=== PATIENT | male | born 1955 | race Caucasian/White ===

== ENCOUNTER 2017-12-10 08:37 | Emergency (ER) | payer MEDICARE, MEDICAID ==
[2017-12-10 09:31] LABS: ABSOLUTE BASOPHILS # (AUTO) 0.1 10^3/uL (0.0-0.2); ABSOLUTE EOSINOPHILS # (AUTO) 0.2 10^3/uL (0.0-0.6); ABSOLUTE LYMPHOCYTES (AUTO) 1.5 10^3/uL (0.5-4.7); ABSOLUTE MONOCYTES (AUTO) 0.7 10^3/uL (0.1-1.4); ABSOLUTE NEUT (AUTO) 6.3 10^3/uL (1.7-8.2); BASOPHILS % (AUTO) 0.7 % (0-2); HEMATOCRIT 32.7 % (37.9-51.0); HEMOGLOBIN 11.1 g/dL (13.5-17.0); LYMPHOCYTES % (AUTO) 16.7 % (13-45); MEAN CORPUSCULAR HEMOGLOBIN 28.4 pg (27.0-33.4); MEAN CORPUSCULAR HGB CONC 34.1 g/dL (32.0-36.0); MEAN CORPUSCULAR VOLUME 83 fl (80-97); MONOCYTES % (AUTO) 8.5 % (3-13); PLATELET COUNT 467 10^3/uL (150-450); RED BLOOD COUNT 3.92 10^6/uL (4.35-5.55); SEGMENTED NEUTROPHILS % (AUTO) 72.1 % (42-78); TOTAL CELLS COUNTED % (AUTO) 100 %; WHITE BLOOD COUNT 8.7 10^3/uL (4.0-10.5)
[2017-12-10 09:50] LABS: ANION GAP 9 (5-19); BLOOD UREA NITROGEN 16 mg/dL (7-20); CALCIUM 8.4 mg/dL (8.4-10.2); CARBON DIOXIDE 23 mmol/L (22-30); CHLORIDE 106 mmol/L (98-107); CREATINE KINASE 172 U/L (55-170); GLUCOSE 126 mg/dL (75-110); PHOSPHORUS 3.4 mg/dL (2.5-4.5); POTASSIUM 3.9 mmol/L (3.6-5.0); SODIUM 137.5 mmol/L (137-145)
--- NOTE | 2017-12-10 10:17 | RADIOLOGY REPORT (SQ) ---
EXAM DESCRIPTION: CT HEAD WITHOUT COMPLETED DATE/TIME: 12/10/2017 9:59 am REASON FOR STUDY: weakness COMPARISON: None. TECHNIQUE: Axial images acquired through the brain without intravenous contrast. Images reviewed wi th bone, brain and subdural windows. Images stored on PACS. All CT scanners at this facility use dose modulation, iterative reconstruction, and/or weight based d osing when appropriate to reduce radiation dose to as low as reasonably achievable (ALARA). [facility]: Dose Right [facility]: CareDose [facility]: Dose Right [facility]: Teradose 4D [facility]: Smart Hitwise RADIATION DOSE: CT Rad equipment meets quality standard of care and radiation dose reduction techniq ues were employed. CTDIvol: 64.6 mGy. DLP: 1163 mGy-cm. mGy. LIMITATIONS: None. FINDINGS: VENTRICLES: Normal size and contour. CEREBRUM: No visualized masses. No hemorrhage. No midline shift. Ill-defined low-attenuation in the white matter of the right temporal lobe extending to the internal and external capsule. CEREBELLUM: No masses. No hemorrhage. No alteration of density. No evidence for acute infarction. EXTRAAXIAL SPACES: No fluid collections. No masses. ORBITS AND GLOBE: No intra- or extraconal masses. Normal contour of globe without masses. CALVARIUM: No fracture. PARANASAL SINUSES: No fluid or mucosal thickening. SOFT TISSUES: No mass or hematoma. OTHER: No other significant finding. IMPRESSION: ILL-DEFINED LOW-ATTENUATION IN THE WHITE MATTER OF THE RIGHT TEMPORAL LOBE DESCRIBED. CONFIGURATION IS SOMEWHAT CONCERNING FOR VASOGENIC WHITE MATTER EDEMA SECONDARY TO UNDERLYING MASS. RECOMMEND FOLLOW-UP WITH CT OF THE HEAD WITH CONTRAST. MRI WILL MOST LIKELY BE REQUIRED WELL. EVIDENCE OF ACUTE STROKE: POSSIBLE, SEE ABOVE. COMMENT: Quality ID # [id number]: Final reports with documentation of one or more dose reduction techniques (e.g., Automated exposure control, adjustment of the mA and/or kV according to patient size, use of iterative reconstruction technique) TECHNICAL DOCUMENTATION: JOB ID: [id number] [employer] All Rights Reserved Reading location - IP/workstation name: [email or web address]
[2017-12-10 10:41] LABS: APPEARANCE,URINE CLEAR; BILIRUBIN,URINE NEGATIVE (NEGATIVE); COLOR,URINE YELLOW; GLUCOSE, URINE NEGATIVE (NEGATIVE); KETONES,URINE TRACE mg/dL (NEGATIVE); LEUKOCYTE ESTERASE,URINE NEGATIVE (NEGATIVE); NITRITE,URINE NEGATIVE (NEGATIVE); PROTEIN,URINE 30 mg/dL (NEGATIVE); URINE SPECIFIC GRAVITY 1.018
[2017-12-10] MEDS ORDERED: DEXAMETHASONE SOD PHOS INJ 10 MG/1 ML VIAL IV ONE (11:47)
[2017-12-10] MEDS ORDERED: DEXAMETHASONE 4 MG TABLET PO ONE (12:44)
--- NOTE | 2017-12-10 12:52 | ER Document Report ---
ED General - General Chief Complaint: General Weakness Stated Complaint: INABILITY TO STAND Time Seen by Provider: 12/10/17 08:51 TRAVEL OUTSIDE OF THE [place] IN LAST 30 DAYS: No - HPI Patient complains to provider of: General weakness Notes: Patient coming in for generalized weakness. Patient has a history of prostate cancer. Patient states currently having active radiation or chemotherapy patient is on multiple narcotic medications for chronic back pain. Patient states reason for coming [place] for generalized weakness but does have difficulty ambulating does have a walker and wheelchair at home patient states that he mostly likes using the wheelchair however today with a difficult time and standing up getting out of bed therefore EMS was called patient was brought in for further evaluation denies any numbness tingling denies any unilateral weakness. Patient denies fevers chills - Related Data Allergies/Adverse Reactions: codeine Allergy (Verified 12/10/17 09:06) Penicillins Allergy (Verified 12/10/17 09:06) Past Medical History - Social History Smoking Status: Never Smoker Chew tobacco use (# tins/day): No Frequency of alcohol use: None Drug Abuse: None Family History: Reviewed & Not Pertinent Patient has suicidal ideation: No Patient has homicidal ideation: No Renal/ Medical History: Denies: Hx Peritoneal Dialysis Past Surgical History: Reports: Hx Orthopedic Surgery - right great toe amputation Review of Systems - Review of Systems Constitutional: Weakness EENT: No symptoms reported Cardiovascular: No symptoms reported Respiratory: No symptoms reported Gastrointestinal: No symptoms reported Genitourinary: No symptoms reported Male Genitourinary: No symptoms reported Musculoskeletal: No symptoms reported Skin: No symptoms reported Hematologic/Lymphatic: No symptoms reported Neurological/Psychological: No symptoms reported -: Yes All other systems reviewed and negative Physical Exam - Vital signs Vitals: Temp Pulse Resp BP Pulse Ox 98.4 F 117 H 20 176/82 H 99 12/10/17 09:03 12/10/17 09:03 12/10/17 09:03 12/10/17 09:03 12/10/17 09:03 Interpretation: Normal - General General appearance: Appears well, Alert - HEENT Head: Normocephalic, Atraumatic Eyes: Normal Pupils: PERRL - Respiratory Respiratory status: No respiratory distress Chest status: Nontender Breath sounds: Normal Chest palpation: Normal - Cardiovascular Rhythm: Regular Heart sounds: Normal auscultation Murmur: No - Abdominal Inspection: Normal Distension: No distension Bowel sounds: Normal Tenderness: Nontender Organomegaly: No organomegaly - Back Back: Normal, Nontender - Extremities General upper extremity: Normal inspection, Nontender, Normal color, Normal ROM , Normal temperature General lower extremity: Normal inspection, Nontender, Normal color, Normal temperature, Other - Patient is able to bend both legs and knee however cannot perform straight leg raise with his leg patient states this is normal - Neurological Neuro grossly intact: Yes Cognition: Normal Orientation: AAOx4 Pearl Coma Scale Eye Opening: Spontaneous Alder Coma Scale Verbal: Oriented Pearl Coma Scale Motor: Obeys Commands Pearl Coma Scale Total: 15 Speech: Normal Motor strength normal: LUE, RUE Sensory: Normal Knee - Reflex grade: 2 = Normal - Psychological Associated symptoms: Normal affect, Normal mood - Skin Skin Temperature: Warm Skin Moisture: Dry Skin Color: Normal Course - Re-evaluation Re-evalutation: 12/10/17 14:39 Laboratory studies not reveal any critical pathology there was a finding on the CT scan of underlying possible intracranial mass with vasogenic edema no signs of shift. Did discuss with the oncologist requesting that we try to obtain an MRI here in the ER. Did discuss with the patient patient has been ambulatory with assistance to the bathroom here in ER patient states he is feeling back to his normal self. 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 Patient is at bedside patient is requesting to be discharged home follow-up with Dr. paz tomorrow. We did give the patient a dose of Decadron and enough tablets to last him throughout the night to have a prescription filled. Patient refusing MRI CT scan as well states that he is back to his baseline was like to go home. - Vital Signs Vital signs: Temp Pulse Resp BP Pulse Ox 98.4 F 117 H 20 176/82 H 99 12/10/17 09:03 12/10/17 09:03 12/10/17 09:03 12/10/17 09:03 12/10/17 09:03 - Laboratory Result Diagrams: 12/10/17 09:11 12/10/17 09:11 Laboratory results interpreted by me: 12/10/17 12/10/17 12/10/17 09:11 09:11 09:30 RBC 3.92 L Hgb 11.1 L Hct 32.7 L Plt Count 467 H Creatinine 0.46 L Glucose 126 H Creatine Kinase 172 H Urine Protein 30 H Urine Ketones TRACE H Urine Urobilinogen 4.0 H Urine Ascorbic Acid 40 H Discharge - Discharge Clinical Impression: Generalized weakness, Possible mass within the brain Condition: Good Disposition: HOME, SELF-CARE Instructions: Growth or Mass, Pending Workup ([facility]), Weakness ([facility]) Additional Instructions: Your evaluation today shows a possible mass within the brain on the CAT scan. Otherwise her lab work is negative. I discussed this with your oncologist is requesting us to get an MRI and CT scan of her head however at this time he will like to be discharged home. I do request that you take the medication that we gave you here and take the Decadron as prescribed. Please follow-up with Dr. Oreilly tomorrow. Return to the ER for any concerns. Prescriptions: Dexamethasone [Decadron 4 Mg Tablet] 4 mg PO Q6 #30 tablet Referrals: TREVOR MENA MD [Primary Care Provider] - Follow up as needed BERTA MCGRAW MD [ACTIVE STAFF] - Follow up tomorrow
[2017-12-10 12:57] VITALS: BP 182/89
== END 2017-12-10 12:57 | disposition home or self-care (01) ==
LOC: ER 08:37
DX: R53.1 Weakness (principal); M54.9 Dorsalgia, unspecified; G89.29 Other chronic pain
CPT/HCPCS: 99285; 36415; 82550; 83735; 84100; 85025; 80048; 81001; 70450; A9270; J1100